=== PATIENT | female | born 1970 | race Caucasian/White ===

== ENCOUNTER 2021-02-24 07:57 | Day surgery (SDC) | payer BC ==
[2021-02-24] MEDS ORDERED: Sodium Chloride 0.9% 10 ML Syringe FLUSH PRN (08:00)
[2021-02-24] MEDS: Lactated Ringers 1,000 ML IV SCH (08:25)
[2021-02-24] MEDS ORDERED: Propofol 200 MG/20 ML SDV ONE ×3 (08:57→09:51)
[2021-02-24] MEDS ORDERED: Midazolam 1 MG/ML 2 ML SDV ONE (08:58)
[2021-02-24] MEDS: Albuterol/Ipratropium 3.0-0.5 MG/3 ML Neb Soln NEB ONE (08:59)
[2021-02-24] MEDS ORDERED: Propofol 200 MG/20 ML SDV IV ONE (09:00)
--- NOTE | 2021-02-24 09:18 | PCM.PN ---
- General Info Date of Service: 02/24/21 - Review of Systems Systems Review Comment:: 50-year-old female here for colonoscopy. She states that she has a history of prior colonoscopy over 20 years ago. Some polyps were noted but not removed at that time. She is also had a recent history of intermittent rectal bleeding. She is medically stable to proceed today. Her recent history and physical is reviewed and no significant changes are noted. I have discussed the proposed colonoscopy with the patient. Risks such as but not limited to bleeding and GI injury reviewed. She agrees to proceed. Patient also requests hemorrhoid banding if indicated. - Patient Data Vitals - Most Recent: Last Vital Signs Temp 96.5 F L 02/24/21 08:10 Pulse 62 02/24/21 08:59 Resp 17 02/24/21 08:21 BP 143/85 H 02/24/21 08:21 Pulse Ox 91 L 02/24/21 08:21 Weight - Most Recent: 97.976 kg Med Orders - Current: Current Medications Lactated Ringer's (Ringers, Lactated) 1,000 mls @ 50 mls/hr IV ASDIRECTED [facility] Last Admin: 02/24/21 08:25 Dose: 50 mls/hr Documented by: Sodium Chloride (Sodium Chloride 0.9% 10 Ml Syringe) 10 ml FLUSH Q8HR PRN PRN Reason: keep vein open Discontinued Medications Albuterol/Ipratropium (Albuterol/Ipratropium 3.0-0.5 Mg/3 Ml Neb Soln) 3 ml NEB ONETIME ONE Stop: 02/24/21 08:49 Last Admin: 02/24/21 08:59 Dose: 3 ml Documented by: Midazolam HCl (Midazolam 1 Mg/Ml 2 Ml Sdv) Confirm Administered Dose 2 mg .ROUTE .STK-MED ONE Stop: 02/24/21 08:59 Propofol (Propofol 200 Mg/20 Ml Sdv) Confirm Administered Dose 400 mg .ROUTE .STK-MED ONE Stop: 02/24/21 08:58 Sepsis Event Note - Focused Exam Vital Signs: Vital Signs Temp Pulse Resp BP Pulse Ox 02/24/21 08:59 62 02/24/21 08:21 66 17 143/85 H 91 L 02/24/21 08:10 96.5 F L 67 20 143/86 H 92 L - Problem List Review Problem List Initiated/Reviewed/Updated: Yes - My Orders Last 24 Hours: My Active Orders 02/23/21 11:06 Resuscitation Status Routine 02/24/21 08:00 Patient to Empty Bladder [RC] ASDIRECTED Peripheral IV Care [RC] . DIRECTED Nothing Per Oral Diet [DIET] Lactated Ringers [Ringers, Lactated] 1,000 ml IV ASDIRECTED Sodium Chloride 0.9% [Saline Flush] 10 ml FLUSH Q8HR PRN Peripheral IV Insertion Adult [OM.PC] Routine 02/24/21 09:00 Verify Patient Consent Obtain [RC] ASDIRECTED - Assessment Assessment:: Hematochezia - Plan Plan:: Colonoscopy Possible hemorrhoid banding
--- NOTE | 2021-02-24 10:07 | PCM.OPNOTE ---
- General Post-Op/Procedure Note Date of Surgery/Procedure: 02/24/21 Operative Procedure(s): Colonoscopy with polypectomy. Hemorrhoid banding Findings: Multiple small hemorrhoids Large internal and external hemorrhoids moderate sigmoid diverticulosis Pre Op Diagnosis: Rectal Bleeding Post-Op Diagnosis: Colon Polyps. Hemorrhoids. Sigmoid Diverticulosis Anesthesia Technique: MAC Primary Surgeon: Dami Eli Pathology: Colon Polyps EBL in mLs: 2 Complications: None Condition: Good
--- NOTE | 2021-02-24 15:08 | OR ---
DATE OF SURGERY: 02/24/2021 SURGEON: Dami Eli MD PREOPERATIVE DIAGNOSIS: Rectal bleeding. POSTOPERATIVE DIAGNOSIS: Colon polyps, sigmoid diverticulosis, hemorrhoids. OPERATION PERFORMED: Colonoscopy with polypectomy and hemorrhoid banding. INDICATIONS FOR SURGERY: This 50-year-old female is referred for colonoscopy. It has been many years since her previous colonoscopy and she was told at that time that she did have some small polyps. She has been having some rectal bleeding recently. FINDINGS: In the rectum, the patient has a cluster of 3 small polyps, each 4-5 mm in size. These were sessile in configuration and 2-4 cm from the anal verge. The patient also has a cluster of 5 polyps at the sigmoid region approximately 18 cm from the anal verge. These range in size from 5-8 mm and are sessile in configuration. In the ascending colon, the patient has a solitary polyp which is 6 mm in size and sessile in configuration. The patient also has a moderate degree of diverticulosis in the sigmoid region, although this does not appear to be acutely inflamed or otherwise complicated. She also has multiple large internal external hemorrhoidal complexes. DESCRIPTION OF PROCEDURE: The patient was taken to the operating room. She was given intravenous sedation, and with her in the left lateral decubitus position, digital rectal exam was performed. No rectal masses were noted, although hemorrhoids were identified. The Olympus colonoscope was inserted into the rectum. Retroflexed examination of the rectal canal was performed. The scope was then carefully advanced into the rectal and sigmoid region. The above- described polyps were removed. The polyps low down in the rectal canal, were removed with cold biopsy forceps and the polyps in the sigmoid region were slightly larger and were removed with cautery snare. These polyps were submitted as 2 specimen from these 2 locations. The scope was then carefully advanced under direct visualization through the entire length of the colon until the cecum was reached. Cecal acquisition was confirmed by noting the normal internal cecal anatomy including the appendiceal orifice and the ileocecal valve. The light was also noted to transilluminate the abdominal wall in the right lower quadrant. The ileocecal valve was cannulated and the terminal ileum examined and appeared normal. The scope was then slowly withdrawn, and in the ascending colon, the above-described polyp there was identified, this was removed with a cautery snare and retrieved. Examination was then continued sequentially re-examining the colonic segments until the entire colon and rectum had been examined. Prior to the procedure, the patient requested that if hemorrhoids were identified that were amenable to hemorrhoid banding that this be performed, and according to this wish, the internal portion of the hemorrhoids were banded at the 11 and 7 o'clock positions. Good tissue purchase at both locations of the internal hemorrhoids was achieved. No sign of any complication was noted. The scope was then removed, and the patient was taken from the operating room in satisfactory condition. ESTIMATED BLOOD LOSS: Less than 2 mL. COMPLICATIONS: None. PROGNOSIS: Good. /[id number]/[id number] MTDD
== END 2021-02-24 11:45 | disposition home or self-care (01) ==
LOC: KA.SDS 07:57
PROVIDERS: ATTEND Surgery
DX: D12.2 Benign neoplasm of ascending colon (principal); D12.5 Benign neoplasm of sigmoid colon; K62.1 Rectal polyp; K64.4 Residual hemorrhoidal skin tags; K64.8 Other hemorrhoids; K57.30 Diverticulosis of large intestine without perforation or abscess without bleeding; F17.210 Nicotine dependence, cigarettes, uncomplicated; E78.5 Hyperlipidemia, unspecified; I10 Essential (primary) hypertension; Z86.010 Personal history of colon polyps; Z88.8 Allergy status to other drugs, medicaments and biological substances; Z79.899 Other long term (current) drug therapy
CPT/HCPCS: 00812; 94640; J2250; J2704; J7120; J7620-GY